=== PATIENT | male | born 1970 | race Native Hawaiian/Other Pacific Islander ===

== ENCOUNTER 2020-10-17 07:39 | Outpatient (CLI) | payer OTHER | END 2020-10-17 20:54 | disposition home or self-care (01) | LOC: CT 07:39 | PROVIDERS: ATTEND Surgery | DX: I74.09 Other arterial embolism and thrombosis of abdominal aorta (principal) | CPT/HCPCS: 36415; 82565; 84520 ==

== ENCOUNTER 2021-02-14 07:53 | Outpatient (CLI) | payer OTHER | END 2021-02-14 20:06 | disposition home or self-care (01) | LOC: CT 07:53 | PROVIDERS: ATTEND Internal Medicine Cardiovascular Disease | DX: I74.09 Other arterial embolism and thrombosis of abdominal aorta (principal) ==